=== PATIENT | female | born 1960 | race Two or more races ===

== ENCOUNTER 2019-03-09 17:48 | Emergency (ER) | payer OTHER ==
[~2019-03-09] VITALS: Ht 147.3 cm; Wt 63.5 kg
[2019-03-09 18:23] VITALS: BP 137/73
[2019-03-09] MEDS ORDERED: cefTRIAXone SOD 1,000 MG VL IM ONE (19:00)
[2019-03-09] MEDS ORDERED: PHENAZOPYRIDINE HCL 100 MG TAB PO ONE (19:00)
[2019-03-09] MEDS ORDERED: ACETAMINOPHEN/CODEINE#3 (300/30mg) TAB PO ONE (19:00)
== END 2019-03-09 19:32 | disposition home or self-care (01) ==
LOC: ER 17:48
DX: N39.0 Urinary tract infection, site not specified (principal)
CPT/HCPCS: 81002; 81025; 96372; 99283; J0696